=== PATIENT | male | born 1970 | race Caucasian/White ===

== ENCOUNTER 2021-12-28 13:04 | Emergency (ER) | payer BC ==
[~2021-12-28] VITALS: Ht 175.3 cm; Wt 104.3 kg
[2021-12-28 14:21] LABS: HEMOGLOBIN 17.7 gm/dl (14.0-17.5); RED BLOOD COUNT 5.16 M/UL (4.20-5.50); WHITE BLOOD COUNT 7.6 K/UL (4.5-11.0)
[2021-12-28 14:50] LABS: BUN/CREATININE RATIO 18 (0-10)
[2021-12-28] MEDS ORDERED: ZOFRAN 4 MG TAB4 MG PO (15:55)
== END 2021-12-28 16:00 | disposition admitted as inpatient to this hospital (09) ==
LOC: ER1 13:04
PROVIDERS: Emergency Medicine
DX: U07.1 COVID-19 (principal); R79.89 Other specified abnormal findings of blood chemistry; I10 Essential (primary) hypertension; I25.10 Atherosclerotic heart disease of native coronary artery without angina pectoris; F17.200 Nicotine dependence, unspecified, uncomplicated
CPT/HCPCS: 0240U; 71045; 80053; 81001; 82550; 82553; 83690; 84484; 85025; 87040; 96374; 99284; J2405